=== PATIENT | male | born 1980 | race Caucasian/White ===

== ENCOUNTER 2017-07-29 08:22 | Outpatient (CLI) | payer BC ==
--- NOTE | 2017-07-29 11:13 | MRI ---
MRI LUMBAR SPINE WITHOUT CONTRAST: HISTORY: Low back pain. TECHNIQUE: Multiplanar, multisequential imaging of the lumbar spine obtained. FINDINGS: The lumbar vertebrae maintain height and alignment. The disk spaces are preserved. There are degene rative signal changes at the L4-L5 disk space. There is mild loss of disk height at L1-L2 and at T12 -L1. There is a superior endplate deformity at L5 with signal changes along the superior endplate, c onsistent with degenerative changes. Mild degenerative spurring from the lumbar vertebrae. L1-L2: Minimal disk bulge. Mild facet arthrosis. No significant central canal or foraminal stenosi s. L2-L3: Minimal disk bulge. Mild facet arthrosis. No significant central canal or foraminal stenosi s. L3-L4: Minimal disk bulge. Mild facet arthrosis. No significant central canal or foraminal stenosi s. L4-L5: A small annular fissure is seen. A small central protrusion abuts the anterior thecal sac. Mild facet arthrosis. Mild central canal stenosis. L5-S1: Mild diffuse disk bulge. Moderate facet hypertrophy. There is evidence of bilateral pars de fects posteriorly, at L5. There is no evidence of spondylolisthesis. No central canal stenosis. Mi ld foraminal narrowing due to hypertrophic change. IMPRESSION: 1. Annular fissure with small central protrusion at L4-L5 that mildly flattens the anterior thecal s ac. 2. At L5-S1, posterior pars defects without spondylolisthesis. Mild foraminal narrowing due to hype rtrophic change. POS: [facility]
== END 2017-07-29 08:23 | disposition home or self-care (01) ==
LOC: MRI 08:22
PROVIDERS: ATTEND Family Medicine
DX: M54.9 Dorsalgia, unspecified (principal); M51.86 Other intervertebral disc disorders, lumbar region; M99.83 Other biomechanical lesions of lumbar region
CPT/HCPCS: 72148

== ENCOUNTER 2018-06-02 12:46 | Outpatient (CLI) | payer BC ==
--- NOTE | 2018-06-02 14:01 | RAD ---
LUMBAR SPINE FIVE VIEWS: HISTORY: Low back pain. FINDINGS: There are five lumbar type vertebrae. The pedicles are intact. Mild leftward convex rotator scoliot ic curvature. Vertebral body height and AP alignment are maintained. Mild disk space narrowing at t he T12-L1, L1-L2, and L2-L3 levels. Mild osteophytosis of the vertebral bodies. More prominent oste ophytosis of the facets. IMPRESSION: 1. Degenerative changes of the lumbar spine. 2. No evidence of compression fracture. POS: [facility]
== END 2018-06-02 12:47 | disposition home or self-care (01) ==
LOC: BICRAD 12:46
PROVIDERS: ATTEND Chiropractor
DX: M54.42 Lumbago with sciatica, left side (principal); M43.17 Spondylolisthesis, lumbosacral region; M47.816 Spondylosis without myelopathy or radiculopathy, lumbar region
CPT/HCPCS: 72110